=== PATIENT | female | born 1980 | race American Indian/Alaskan Native ===

== ENCOUNTER 2018-05-08 05:07 | Emergency (ER) | payer OTHER ==
--- NOTE | 2018-05-08 09:03 | Emergency Department Report ---
ED Rash HPI - HPI Chief Complaint: Skin Rash Stated Complaint: WEAKNESS/DEHYDRATION/RASH Time Seen by Provider: 05/08/18 08:32 Duration: 1 month (1 minute) Location: Head (face), Chest Suspected Cause: Unknown Rash Symptoms: Yes Itching, No Facial Swelling, No Tongue/Oral Swelling, No Breathing Difficulties, No Choking Sensation, No Wheezing/Dyspnea, No Peeling, No Blistering, No Fever, No Lightheaded, No Malaise, No Myalgias Other History: Since a 37-year-old -[place] female who presents with a rash to face and chest for one month. Patient reports rash is itchy and spreading from face to chest. Patient states she went to pharmacy when symptoms started about one month ago and was told it was a ringworm and given cream to apply to face. Patient states symptoms are getting worse because he now rash is spreading from face to chest. She also states rash may be associated with mold in bathroom at home. She also complains of congestion and sore throat. Patient denies taking in Benadryl for symptom relief. Patient states itching is worse at night. Patient denies difficulty swallowing, drooling, chest pain, fever, and rhinorrhea. ED Review of Systems ROS: Stated complaint: WEAKNESS/DEHYDRATION/RASH Other details as noted in HPI Constitutional: denies: chills, fever Respiratory: denies: cough, shortness of breath, wheezing Cardiovascular: denies: chest pain, palpitations Gastrointestinal: denies: abdominal pain, nausea, vomiting, diarrhea Skin: rash (face and chest). denies: lesions Neurological: denies: headache, weakness, paresthesias Psychiatric: denies: anxiety, depression ED Past Medical Hx - Past Medical History Hx Hypertension: Yes - Surgical History Past Surgical History?: Yes Additional Surgical History: c section, tubal ligation - Social History Smoking Status: Current Every Day Smoker Substance Use Type: None - Medications Home Medications: Home Medications Medication Instructions Recorded Confirmed Last Taken Type hydrOXYzine PAMOATE [Vistaril] 25 mg PO Q6HR PRN #15 capsule 05/08/18 Unknown Rx methylPREDNISolone [Medrol] 4 mg PO DAILY #1 tab.ds.pk 05/08/18 Unknown Rx Rash Exam - Exam General: Vital signs noted. No distress. Alert and acting appropriately. HEENT: No Periorbital Edema, No Conjuctival Injection, No Chemosis, No Perioral Edema, No Tongue Edema, No Uvular Edema, No Compromised Airway, No Drooling Lungs: Yes Good Air Exchange (Normal Breath Sounds), No Wheezes, No Ronchi, No Stridor, No Cough, No Labored Respirations, No Retractions, No Use of Accessory Muscles, No Other Abnormal Lung Sounds Heart: Yes Regular, No Murmur Skin: Yes Maculopapular Rash (face and chest), No Urticarial Rash, No Morbilliform rash, No Bulla(e), No Excoriations, No Weeping, No Tenderness, No Erythema, No Edema, No Encrustations, No Other ED Course Vital Signs 05/08/18 05:18 Temperature 98.8 F Pulse Rate 74 Respiratory 17 Rate Blood Pressure 182/99 O2 Sat by Pulse 99 Oximetry ED Medical Decision Making - Medical Decision Making This is a 37 y.o. female presents with rash to face and chest for 1 month. Past medical history of hypertension. Patient examined by me. No distress noted. Vitals stable. Patient is drinking fluids w/o distress in ER. Physical assessment susceptible of contact dermatitis. Start medrol dose taper and vistaril and f/u with PCP in 24-72 hours. Patient discharged home stable. Critical care attestation.: If time is entered above; I have spent that time in minutes in the direct care of this critically ill patient, excluding procedure time. ED Disposition Clinical Impression: Contact dermatitis Qualifiers: Contact dermatitis type: allergic Contact dermatitis trigger: unspecified trigger Qualified Code(s): L23.9 - Allergic contact dermatitis, unspecified cause Disposition: TO HOME OR SELFCARE Is pt being admited?: No Does the pt Need Aspirin: No Condition: Stable Instructions: Contact Dermatitis (ED) Additional Instructions: Complete full course of steroids as prescribed. Take Benadryl or Vistaril for itching as discussed. Follow up with primary care provider in 2-3 days. Prescriptions: hydrOXYzine PAMOATE [Vistaril] 25 mg PO Q6HR PRN #15 capsule PRN Reason: Itching methylPREDNISolone [Medrol] 4 mg PO DAILY #1 tab.ds.pk Referrals: [facility] [place] [Outside] - 3-5 Days [facility] [Outside] - 3-5 Days [facility] [Outside] - 3-5 Days Time of Disposition: 09:29 Print Language: PERSIAN
[2018-05-08] MEDS ORDERED: DECADRON IM ONE (09:23)
[2018-05-08 11:53] VITALS: BP 130/62
== END 2018-05-08 09:53 | disposition home or self-care (01) ==
LOC: ED 05:07
DX: L23.9 Allergic contact dermatitis, unspecified cause (principal); I10 Essential (primary) hypertension; F17.200 Nicotine dependence, unspecified, uncomplicated; Z98.51 Tubal ligation status; Z79.899 Other long term (current) drug therapy
CPT/HCPCS: 96372; 99282; J1100